=== PATIENT | female | born 1995 | race Caucasian/White ===

== ENCOUNTER 2016-09-19 16:58 | Emergency (ER) | payer OTHER ==
[~2016-09-19] VITALS: Wt 77.0 kg
[~2016-09-19 16:58] MED LIST: IBUP-1542 PO
[2016-09-19] MEDS ORDERED: DEXAMETHASONE 10 MG/ML 1 ML INJ IM ONE (17:30)
[2016-09-19] MEDS ORDERED: PRED20TA PO (17:38)
[2016-09-19] MEDS ORDERED: CETI10CA PO (17:40)
--- NOTE | 2016-09-19 17:53 | ERD ---
ER Documentation Chief Complaint Date/Time DATE: 09/19/16 TIME: 17:52 Chief Complaint BILATERAL ARM AND TORSO RASH FOR THE PAST FEW DAYS. NO SOB HPI This 21-year-old female presents with a rash on her trunk and extremities for the last 2 days. Patient has a history of urticaria and multiple allergies. 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 The rash is primarily on her forearms and is itchy. Patient took Benadryl does not like to take it because it makes her sleep. She denies shortness breath, fevers, additional symptoms. ROS All systems reviewed and are negative except as per history of present illness. Medications Home Meds Active Scripts Cetirizine Hcl* (Zyrtec*) 10 Mg Capsule, 10 MG PO DAILY, #30 TAB.CHEW Prov:STEVE MARTIN MD 09/19/16 Prednisone* (Prednisone*) 20 Mg Tab, 40 MG PO DAILY for 4 Days, TAB Start September 20, 2016 Prov:STEVE MARTIN MD 09/19/16 Ibuprofen* (Motrin*) 600 Mg Tab, 600 MG PO Q6, #30 TAB Prov:LEWIS VEE 11/11/14 Allergies Allergies: Coded Allergies: bismuth subsalicylate (Verified Allergy, Mild, RASH, 11/10/14) RASH PMhx/Soc History of Surgery: No Anesthesia Reaction: No Hx Neurological Disorder: No Hx Respiratory Disorders: No Hx Cardiac Disorders: No Hx Psychiatric Problems: No Hx Miscellaneous Medical Probl: No Hx Alcohol Use: No Hx Substance Use: No Hx Tobacco Use: No Physical Exam Vitals Vital Signs Date Time Temp Pulse Resp B/P Pulse Ox O2 Delivery O2 Flow Rate FiO2 09/19/16 17:02 99.0 77 21 129/60 99 Physical Exam Const: [] Alert, not ill-appearing per Head: Atraumatic Eyes: Normal Conjunctiva ENT: Normal External Ears, Nose and Mouth. Neck: Full range of motion..~ No meningismus. Resp: Clear to auscultation bilaterally Cardio: Regular rate and rhythm, no murmurs Abd: Soft, non tender, non distended. Normal bowel sounds Skin: No petechiae or purpura. There are scattered wheals on the forearms and slightly in the upper extremities. There are positive skin test reactions on the volar aspect of the left forearm. Back: No midline or flank tenderness Ext: No cyanosis, or edema Neur: Awake and alert Psych: Normal Mood and Affect Results 24 hrs Current Medications Medications (Trade) Dose Ordered Sig/Sinan Route PRN Reason Start Time Stop Time Status Last Admin Dose Admin Dexamethasone (Decadron) 10 mg ONCE ONCE IM 09/19/16 17:30 09/19/16 17:31 DC 09/19/16 17:35 Procedures/MDM Patient presents with urticarial lesions on the upper extremities and trunk for there is no evidence to suggest anaphylaxis, cellulitis, respiratory distress. She appears to be having overreaction to her positive allergy test likely. Patient was given Decadron 10 mg IM will be given a short course of prednisone and a prescription for Zyrtec. Patient to return for shortness breath, fevers, new worsening symptoms with primary care doctor. The patient was stable with no new complaints during the ER course. Clinically, there is no current evidence to suggest meningitis, sepsis, acute abdomen, pneumonia, acute coronary syndrome, pulmonary embolism, or any other emergent condition appearing to require further evaluation or hospitalization. The patient should certainly return for any new or worsening symptoms per the aftercare instructions. They should otherwise follow-up with her primary care doctor for reevaluation this week. Departure Diagnosis: Primary Impression: Urticaria Condition: Stable Patient Instructions: Allergic Reaction, Other (General), Hives Additional Instructions: Recheck for new or worsening symptoms or with primary care doctor. STEVE MARTIN MD September 19, 2016 17:53
== END 2016-09-19 17:54 | disposition home or self-care (01) ==
LOC: FTE 16:58
DX: L50.9 Urticaria, unspecified (principal)
CPT/HCPCS: 96372; J1100

== ENCOUNTER 2018-10-03 08:00 | Emergency (ER) | payer SELFPAY ==
[~2018-10-03] VITALS: Ht 160 cm; Wt 86.2 kg
[~2018-10-03 08:00] MED LIST changes: +CETI10CA PO; +PRED20TA PO
[2018-10-03 08:05] VITALS: BP 139/75; PULSE 84; RESP 18; Ht 160 cm; Wt 86.2 kg
[2018-10-03] MEDS ORDERED: IBUP800T48 PO (08:21)
[2018-10-03] MEDS ORDERED: IBUPROFEN 800 MG TAB PO ONE (08:30)
--- NOTE | 2018-10-03 09:31 | ERD ---
ER Documentation Chief Complaint Chief Complaint lip laceration, no bleeding s/p fell, wants tooth checked HPI 23-year-old female presenting with a laceration to the left inner lip. Patient tripped and fell and hit a table. She denies any head injury or loss of consciousness. Patient has pain to the right front tooth and is concerned that it feels loose. Denies any head injury or loss of consciousness. Denies other medical problems. NKDA. Surgical history denies. Social history denies ROS All systems reviewed and are negative except as per history of present illness. Medications Home Meds Active Scripts Ibuprofen* (Motrin*) 800 Mg Tab, 800 MG PO Q6, #30 TAB Prov:EUGENIA AGARWAL PA-C 10/03/18 Cetirizine Hcl* (Zyrtec*) 10 Mg Capsule, 10 MG PO DAILY, #30 TAB.CHEW Prov:STEVE MARTIN MD 09/19/16 Prednisone* (Prednisone*) 20 Mg Tab, 40 MG PO DAILY for 4 Days, TAB Start September 20, 2016 Prov:STEVE MARTIN MD 09/19/16 Ibuprofen* (Motrin*) 600 Mg Tab, 600 MG PO Q6, #30 TAB Prov:LEWIS VEE 11/11/14 Allergies Allergies: Coded Allergies: bismuth subsalicylate (Verified Allergy, Mild, RASH, 11/10/14) RASH PMhx/Soc Medical and Surgical Hx: pt denies Medical Hx, pt denies Surgical Hx History of Surgery: No Anesthesia Reaction: No Hx Neurological Disorder: No Hx Respiratory Disorders: No Hx Cardiac Disorders: No Hx Psychiatric Problems: No Hx Miscellaneous Medical Probl: No Hx Alcohol Use: No Hx Substance Use: No Hx Tobacco Use: No FmHx Family History: No diabetes, No coronary disease, No other Physical Exam Vitals Vital Signs Date Temp Pulse Resp B/P (MAP) Pulse Ox O2 O2 Flow FiO2 Time Delivery Rate 10/03/18 99.2 84 18 139/75 98 08:05 (96) Physical Exam GENERAL: The patient is well-appearing, well-nourished, in no acute distress HEENT: Atraumatic. Conjunctivae are pink. Pupils equal, round, and reactive to light. There is no scleral icterus. Tympanic membranes clear bilaterally. Oropharynx clear. Questionable laxity noted to the right upper tooth. No injury to the gum. CHEST: Clear to auscultation bilaterally. There are no rales, wheezes or rhonchi. HEART: Regular rate and rhythm. No murmurs, clicks, rubs or gallops. NEUROLOGIC: Alert and oriented. Cranial nerves II through XII intact. Motor strength in all 4 extremities with 5 out of 5 strength. Sensation grossly intact. Normal speech and gait. SKIN: Abrasion noted to the left inner lip with no active bleeding. Results 24 hrs Current Medications Medications Dose Sig/Sinan Start Time Status Last (Trade) Ordered Route PRN Stop Time Admin Dose Reason Admin Ibuprofen 800 mg ONCE ONCE 10/03/18 DC 10/03/18 (Motrin) PO 08:30 08:24 10/03/18 08:31 Procedures/MDM ER course: Ibuprofen given in ED. MDM: 23-year-old female presenting with a laceration to her inner lip. I have low suspicion for intracranial hemorrhage or neuro deficit. Patient is recommended to follow-up with dentist as she may have sustained a dental injury. I do not feel there is indication for laceration repair as this is a superficial abrasion to the inner portion of the lip and did not cross the vermilion border. Patient is told symptoms change or worsen to return immedia tely to the ER. All questions answered at discharge Departure Diagnosis: Primary Impression: Dental injury Additional Impression: Laceration Condition: Stable Patient Instructions: Laceration, All Referrals: [facility] ([facility]) Additional Instructions: FOLLOW UP WITH YOUR PRIMARY CARE PHYSICIAN TOMORROW.Return to this facility if you are not improving as expected. EUGENIA AGARWAL PA-C Oct 03, 2018 09:31
== END 2018-10-03 08:39 | disposition home or self-care (01) ==
LOC: FTE 08:00
DX: S01.511A Laceration without foreign body of lip, initial encounter (principal); W01.198A Fall on same level from slipping, tripping and stumbling with subsequent striking against other object, initial encounter; Y92.9 Unspecified place or not applicable
CPT/HCPCS: 99282